=== PATIENT | female | born 1960 | race Caucasian/White ===

== ENCOUNTER 2024-07-23 19:22 | Emergency (ER) | payer MEDICARE, SELFPAY ==
--- NOTE | 2024-07-23 19:23 | ED_ITS ---
HPI - Skin/Abscess/Foreign Bdy General Chief complaint: Skin/Abscess/Foreign Body Stated complaint: TICK BITE Time Seen by Provider: 07/23/24 19:22 Source: patient Mode of arrival: ambulatory Limitations: no limitations History of Present Illness HPI narrative: Patient is a 63-year-old female that presents with tick bite. Patient noticed check 3 days ago and removed tick was unsure if she got the head. Patient had brother in law all look at it and also is unsure.Patient denies any drainage, pain, swelling, warmth or redness surrounding area. Related Data Allergies Allergy/AdvReac Type Severity Reaction Status Date / Time No Known Allergies Allergy Verified 07/23/24 19:29 Review of Systems 2 Review of Systems: All systems reviewed & are unremarkable except as noted in HPI and below Constitutional: Constitutional: Denies body ache(s), Denies chills, Denies fatigue, Denies fever(s), Denies headache(s), Denies malaise and Denies weakness Eyes: Eyes: Denies blurry vision, Denies irritation and Denies loss of vision ENT: Denies otalgia, Denies headache(s), Denies nasal discharge, Denies sinus pain and Denies sore throat Cardiovascular: Cardiovascular: Denies chest pain, Denies irregular heart rhythm and Denies dyspnea Respiratory: Respiratory: Denies dyspnea Gastrointestinal: Gastrointestinal: Denies abdominal pain, Denies melena, Denies hematochezia, Denies diarrhea, Denies nausea and Denies vomiting Musculoskeletal: Musculoskeletal: Denies back pain, Denies myalgias and Denies arthralgias Integumentary/Breasts: Skin/Breast: Denies pruritus, Denies rash and Reports sores Neurologic: Denies headache(s), Denies loss of vision and Denies weakness Psychiatric: Psychiatric: Reports no additional psychiatric complaints Endocrine: Endocrine: Denies fatigue PMFSH Comments At time of signature, agree with nursing past medical, surgical, social and family history. There is no relevant family history pertinent to the presenting complaint. Exam 2 Const: General: cooperative, healthy appearing, comfortable, no acute distress and well nourished Nutritional Appearance: well nourished O rientation/consciousness: patient oriented x3 Limitations: no limitations HENMT: Head: normal to inspection, normocephalic and atraumatic Ears: h earing grossly normal bilaterally and external ears normal Face/Nose/Sinus: N ormal external nose present, normal facial exam and face symmetric Face and sinus: normal facial exam and face symmetric Mouth: Yes lip normal Eyes: General: appearance normal, both eyes and all related structures A lignment and Position: alignment normal and position normal Periorbital: p eriorbital findings normal Eyelids: eyelids normal Pupils: Equal, round and reactive pupils present EOM: EOMs intact bilaterally Neck: Neck: normal visual inspection, full ROM and supple Chest: Chest palpation & inspection: normal inspection of the chest Resp: Effort & Inspection: normal respiratory effort and able to speak in complete sentences Auscultation: clear to auscultation bilaterally Cardio: Rate: regular rate Rhythm: regular rhythm Heart sounds: S1 normal heart sound present and S2 normal heart sound present GI: Inspection: normal to inspection Skin: General skin exam: normal color Full body images: 1. tick bite. 1 cm area of erythema. No bull's eye. No fluctuation or induration Neuro: General: patient oriented x3 and moves all extremities Cranial nerves: Yes Equal, round and reactive pupils present Speech: normal speech Gait exam (Neuro): Normal gait present Extrem: General: normal to inspection, full ROM and no edema Psych: Appearance: grossly normal and well kempt Mental Status: mental status grossly normal Speech and movement: Normal speech and movement present Affect: normal affect Attitude: cooperative Thought process: Normal thought process present Course Course Emergency Course: Patient is aware of diagnosis, understands and agrees to treatment plan. Anticipatory guidance given. Patient agrees to follow-up as directed and is aware of reasons to seek care at the emergency department. Portions of this record may have been created with voice recognition software Level of Care: Express Care Visit Vital Signs Vital signs: Vital Signs Temperature 37.1 C 07/23/24 19:32 Pulse Rate 96 07/23/24 19:32 Respiratory Rate 16 07/23/24 19:32 Blood Pressure 167/89 H 07/23/24 19:32 Pulse Oximetry 98 07/23/24 19:32 Temperature 37.1 C 07/23/24 19:32 Pulse Rate 96 07/23/24 19:32 Respiratory Rate 16 07/23/24 19:32 Blood Pressure 167/89 H 07/23/24 19:32 Pulse Oximetry 98 07/23/24 19:32 Reviewed MDM - Skin/Abscess/Foreign Bdy MDM Narrative Medical decision making narrative: Pt well hydrated appearing, in no respiratory distress, hemodynamically stable. Recommend supportive care. The patient is stable at time of discharge the clinical impression was discussed and the patient was given the opportunity to ask questions, which were addressed as completely as possible given the information available at present. Anticipatory guidance and return to care precautions were discussed and the importance of primary care follow-up was stressed and encouraged. The patient voiced understanding of the plan, indications to return, and the need for follow-up. Exam findings show no acute concerns or changes Patient is appropriate for outpatient treatment and follow-up. Differential Diagnosis Differential diagnosis: Likely cellulitis, insect bites and contact dermatitis Discharge Plan Discharge Clinical Impression: Tick bite of back Qualifiers: Encounter type: initial encounter Qualified Code(s): S30.860A - Insect bite (nonvenomous) of lower back and pelvis, initial encounter Patient Disposition: Home Condition: Stable Instructions: Tick Bite (ED) Additional Instructions: You have been prescribed Doxycycline today.It may make your skin more sensitive to sunlight than normal. Make sure you wear sunscreen at all times when outside while on the medication. Ticks should be removed promptly with tweezers (fine-tipped forceps) or using Q- tip and cervical motion. Prevention is alejo. If you are in the wooded area, tall grass, or brush: -Wear long pants and long sleeves. -Wear socks over the outside of pant legs. -Tuck shirts into pants. -Wear light-colored clothes so that ticks can easily be spotted. -[place] clothes and exposed skin with insect repellant. -Frequently check clothes and skin for ticks Avoid scratching the affected area, clean with soap and water only. Watch for sign of skin infection include but not limited to redness, swollen, severe pain or fever to seek evaluation. Please schedule a followup visit with your personal physician for further evaluation and treatment or If your symptoms persist, change or worsen significantly before you can contact your personal physician then please, without delay, go to the emergency department for further evaluation Kilo blood pressure was elevated above 120/80 today at Urgent Care. This puts you above the threshold for follow up visit with a primary care provider. High blood pressure does not usually cause any symptoms, however it may lead to kidney failure, stroke, heart disease just to name a few if untreated . Many people are anxious when seeing a provider or nurse. As a result, you are not diagnosed with hypertension at this time unless your blood pressure is persistently high at two office visits at least one week apart. Some things that can help lower blood pressure are lifestyle modifications, such as light exercise, decreased salt in diet, and weight loss. It is important to follow up with a PCP about this within 1 week. Patient Language: Burmese Prescriptions: New doxycycline monohydrate 100 mg tablet 100 mg PO BID 7 Days Qty: 14 0RF mupirocin 2 % ointment 1 applic topical BID Qty: 15 0RF Follow-up/Referrals: Shadi,MD Fabián [Primary Care Provider] - 3 Days Time of Disposition: 19:43
[2024-07-23 19:32] VITALS: BP 167/89; PULSE 96; RESP 16; TEMP 37.1; O2SAT 98
== END 2024-07-23 19:48 | disposition home or self-care (01) ==
PROVIDERS: Emergency Provider Nurse Practitioner Family; PCP Family Medicine
DX: S30.860A Insect bite (nonvenomous) of lower back and pelvis, initial encounter (principal); W57.XXXA Bitten or stung by nonvenomous insect and other nonvenomous arthropods, initial encounter
CPT/HCPCS: 99203; G0463

== ENCOUNTER 2024-10-10 08:17 | Emergency (ER) | payer MEDICARE, SELFPAY ==
[2024-10-10 08:30] VITALS: BP 154/84; PULSE 72; RESP 16; TEMP 36.7; O2SAT 100
--- NOTE | 2024-10-10 08:55 | ED_ITS ---
HPI - General Adult General Chief complaint: Skin/Abscess/Foreign Body Stated complaint: RASH Source: patient Mode of arrival: ambulatory Limitations: no limitations History of Present Illness HPI narrative: Patient presents for evaluation of a pruritic rash to her trunk and extremities x4. Symptom onset 5 days ago. She was exposed to poison mima earlier that day. She did have an allergic response to poison mima in childhood. No new lotions, soaps, detergents, topical products. She is not taking any medications to assist with her symptoms. Related Data Allergies Allergy/AdvReac Type Severity Reaction Status Date / Time No Known Allergies Allergy Verified 10/10/24 08:24 Review of Systems Review of Systems: CONSTITUTIONAL: Denies fever, chills, or sweats. EYES: Denies visual changes, redness, or discharge. ENT: Denies rhinorrhea, congestion, sore throat, or otalgia. CARDIOVASCULAR: Denies chest pain, palpitations, or edema. RESPIRATORY: Denies cough or dyspnea. GASTROINTESTINAL: Denies abdominal pain, nausea, vomiting, or diarrhea. GENITOURINARY: Denies dysuria or hematuria. SKIN: Reports pruritic rash to the trunk and extremities x4 MUSCULOSKELETAL: Denies back pain, joint pain, or myalgia. NEUROLOGIC: Denies headache, numbness, dizziness, or weakness. PSYCHIATRIC: Denies anxiety or depression. [facility] Past Medical History Medical History No pertinent past medical history Surgical History Surgical History No pertinent past surgical history Family History Family History Mother Family history non-contributory Social History Social History Smoking status: Never smoker Substance use: never Living arrangements: with family Gender identity (if verbalized by the patient): Female Sexual Orientation (if Verbalized by the Patient): Straight or Heterosexual Spiritual care concerns: No Exam Narrative: GENERAL: Well-appearing, well-nourished, and in no acute distress. HEAD: Normocephalic, atraumatic. EYES: PERRLA and EOMI. ENT: Nares clear, no rhinorrhea or epistaxis. Mucous membranes moist. Oropharynx without tonsillar hypertrophy exudate or other lesions. Bilateral TMs pearly saha nonbulging NECK: Supple. No adenopathy or masses. No carotid bruits or JVD CHEST: Clear to auscultation. No respiratory distress. No wheezes rales or rhonchi HEART: Regular rate and rhythm. No murmur heard. Normal peripheral pulses. ABDOMEN: Soft, nontender, nondistended, normal active bowel sounds. EXTREMITIES: Normal range of motion. No edema. SKIN: there are multiple erythematous vesicles in a patchy and linear distributions to the trunk and extremities x4. NEURO: No focal deficits. Alert and oriented x3. PSYCH: Normal mood and affect. Course Course Emergency Course: This is a 63-year-old female who presented for evaluation of a pruritic rash to the trunk and extremities x4. Exam is consistent with poison mima dermatitis. Recommend calamine lotion, Benadryl, steroids. Patient is not certain that she would like to move forward with steroids but agree to receive prescription for it. She was advised on intervention she can implement at home to minimize her symptoms. I did advise without steroids her symptoms would likely be quite persistent. I recommended she follow up with primary care go to the ER for worsening symptoms. Patient in agreement with plan of care Level of Care: Express Care Visit Vital Signs Vital signs: Vital Signs Temperature 36.7 C 10/10/24 08:30 Pulse Rate 72 10/10/24 08:30 Respiratory Rate 16 10/10/24 08:30 Blood Pressure 154/84 H 10/10/24 08:30 Pulse Oximetry 100 10/10/24 08:30 Temperature 36.7 C 10/10/24 08:30 Pulse Rate 72 10/10/24 08:30 Respiratory Rate 16 10/10/24 08:30 Blood Pressure 154/84 H 10/10/24 08:30 Pulse Oximetry 100 10/10/24 08:30 Medical Decision Making Vital Signs Vital Signs: Vital Signs Temperature 36.7 C 10/10/24 08:30 Pulse Rate 72 10/10/24 08:30 Respiratory Rate 16 10/10/24 08:30 Blood Pressure 154/84 H 10/10/24 08:30 Pulse Oximetry 100 10/10/24 08:30 Temperature 36.7 C 10/10/24 08:30 Pulse Rate 72 10/10/24 08:30 Respiratory Rate 16 10/10/24 08:30 Blood Pressure 154/84 H 10/10/24 08:30 Pulse Oximetry 100 10/10/24 08:30 Discharge Plan Discharge Clinical Impression: Poison mima dermatitis Patient Disposition: Home Condition: Stable Instructions: Antibiotic Form, Poison Mima (ED) Patient Language: Nauruan Prescriptions: New prednisone 20 mg tablet See Rx Instructions .ROUTE .COMPLEX Qty: 18 0RF Rx Instructions: take 2 tabs po daily x 5 days, then 1 tab po daily x 5 days, then 1/2 tab po daily x 6 days Follow-up/Referrals: Shadi,MD Fabián [Primary Care Provider, Unknown] Time of Disposition: 08:54
== END 2024-10-10 08:55 | disposition home or self-care (01) ==
PROVIDERS: Emergency Provider Nurse Practitioner; PCP Family Medicine
DX: L23.7 Allergic contact dermatitis due to plants, except food (principal)
CPT/HCPCS: 99213; G0463

== ENCOUNTER 2024-12-03 21:19 | Emergency (ER) | payer MEDICARE, SELFPAY ==
--- NOTE | ~2024-12-03 | CT_ITS ---
CT brain wo con HISTORY:trauma COMPARISON: None. TECHNIQUE: Axial images were obtained of the head without intravenous contrast. FINDINGS: No acute intracranial hemorrhage, mass effect or midline shift. No extra-axial fluid collections. The calvarium is intact. Visualized paranasal sinuses and mastoid air cells are clear. IMPRESSION: No acute intracranial hemorrhage or extra axial fluid collections. All CT scans at this facility are performed using low dose modulation techniques as appropriate to perform exam including the following: automated exposure control; use of iterative reconstruction technique; adjustment of the mA and/or kV according to patient size (this includes techniques or standardized protocols for targeted exams where dose is matched to indication/reason for exam). Reviewed, dictated and finalized at location S. IMPRESSION: No acute intracranial hemorrhage or extra axial fluid collections. All CT scans at this facility are performed using low dose modulation techniqu es as appropriate to perform exam including the following: automated exposure c ontrol; use of iterative reconstruction technique; adjustment of the mA and/or kV according to patient size (this includes techniques or standardized protocol s for targeted exams where dose is matched to indication/reason for exam).
--- NOTE | ~2024-12-03 | CT_ITS ---
CT chst ab pel thor lum w HISTORY: trauma . COMPARISON: None. TECHNIQUE: Axial images of the chest, abdomen and pelvis were obtained without and with infusion of 100 Isovue 300. FINDINGS: CT CHEST: The examination demonstrates small right pneumothorax.. Small right pleural effusion. No pathologically enlarged hilar or mediastinal lymphadenopathy is seen. Cardiac size and mediastinal configuration are normal in appearance. The pulmonary artery and thoracic aorta are normal in caliber and patency. There is a nondisplaced fracture of the posterior right fourth through eighth ribs. The visualized organs of the upper abdomen are unremarkable. IMPRESSION: Small right pneumothorax and pleural effusion with multiple right rib fractures. CT abdomen and pelvis with contrast: The liver parenchyma is unremarkable. 12 mm peripheral nodular enhancing right hepatic lobe lesion likely a hemangioma. The gallbladder is unremarkable. The pancreas and spleen are normal in appearance. The adrenal glands are symmetric in size. The kidneys demonstrate symmetric uptake and excretion of contrast. No cystic mass is evident. There is no solid mass. There is no hydronephrosis. Evaluation of the stomach and bowel loops are limited due to lack of oral contrast. The bladder and rectum are normal. No free intraperitoneal fluid or air is evident. There is no significant retroperitoneal lymphadenopathy. The aorta, visceral vessels and renal arteries demonstrate normal caliber and patency. The lower thoracic and lumbar vertebrae are in normal alignment. IMPRESSION: No acute abnormality is noted in the abdomen and pelvis. CT LUMBAR SPINE WITHOUT CONTRAST INDICATION: Back pain COMPARISON: None available. TECHNIQUE: Axial 2.5 mm images of the lumbar spine were obtained without contrast. Additional coronal and sagittal reformatted images were rendered. FINDINGS: The axial images demonstrate no acute fracture or paravertebral soft tissue swelling. There is no high-grade central or foraminal stenosis. No significant degenerative disc changes are noted. MULTIPLANAR RECONSTRUCTIONS: Additional sagittal and coronal reformatted images were obtained. The lumbar vertebrae are in alignment. There is no compression fracture, subluxation, or paravertebral soft tissue swelling. The disc spaces are preserved. IMPRESSION: No acute fracture or subluxation. All CT scans at this facility are performed using low dose modulation techniques as appropriate to perform exam including the following: automated exposure control; use of iterative reconstruction technique; adjustment of the mA and/or kV according to patient size (this includes techniques or standardized protocols for targeted exams where dose is matched to indication/reason for exam). All CT scans at this facility are performed using low dose modulation techniques as appropriate to perform exam including the following: automated exposure control; use of iterative reconstruction technique; adjustment of the mA and/or kV according to patient size (this includes techniques or standardized protocols for targeted exams where dose is matched to indication/reason for exam) Reviewed, dictated and finalized at location S. IMPRESSION: Small right pneumothorax and pleural effusion with multiple right rib fractures . CT abdomen and pelvis with contrast: The liver parenchyma is unremarkable. 12 mm peripheral nodular enhancing right hepatic lobe lesion likely a hemangioma. The gallbladder is unremarkable. The p ancreas and spleen are normal in appearance. The adrenal glands are symmetric i n size. The kidneys demonstrate symmetric uptake and excretion of contrast. No cystic m ass is evident. There is no solid mass. There is no hydronephrosis. Evaluation of the stomach and bowel loops are limited due to lack of oral contr ast. The bladder and rectum are normal. No free intraperitoneal fluid or air is evid ent. There is no significant retroperitoneal lymphadenopathy. The aorta, visceral vessels and renal arteries demonstrate normal caliber and p atency. The lower thoracic and lumbar vertebrae are in normal alignment. IMPRESSION: No acute abnormality is noted in the abdomen and pelvis. CT LUMBAR SPINE WITHOUT CONTRAST INDICATION: Back pain COMPARISON: None available. TECHNIQUE: Axial 2.5 mm images of the lumbar spine were obtained without contra st. Additional coronal and sagittal reformatted images were rendered. FINDINGS: The axial images demonstrate no acute fracture or paravertebral soft tissue swelling. There is no high-grade central or foraminal stenosis. No signi ficant degenerative disc changes are noted. MULTIPLANAR RECONSTRUCTIONS: Additional sagittal and coronal reformatted images were obtained. The lumbar vertebrae are in alignment. There is no compression fracture, subluxation, or paravertebral soft tissue swelling. The disc spaces are preserved. IMPRESSION: No acute fracture or subluxation. All CT scans at this facility are performed using low dose modulation techniqu es as appropriate to perform exam including the following: automated exposure c ontrol; use of iterative reconstruction technique; adjustment of the mA and/or kV according to patient size (this includes techniques or standardized protocol s for targeted exams where dose is matched to indication/reason for exam). All CT scans at this facility are performed using low dose modulation techniqu es as appropriate to perform exam including the following: automated exposure c ontrol; use of iterative reconstruction technique; adjustment of the mA and/or kV according to patient size (this includes techniques or standardized protocol s for targeted exams where dose is matched to indication/reason for exam)
--- NOTE | ~2024-12-03 | XR_ITS ---
XR chest 1V INDICATION:trauma . REFERENCE: None FINDINGS: A single AP of the chest demonstrates normal heart size. The lungs are clear. There is no evidence of pneumothorax or pleural effusion. IMPRESSION: No acute pulmonary findings. Reviewed, dictated and finalized at location S.
--- NOTE | ~2024-12-03 | CT_ITS ---
CT cervical spine wo con HISTORY: trauma COMPARISON: None TECHNIQUE: Axial images of the cervical spine were obtained. Multiplanar reconstruction in the coronal, sagittal and axial reformats to evaluate for cervical fracture. FINDINGS: The images demonstrate no acute fracture or paravertebral soft tissue swelling. There is no high-grade central or foraminal stenosis. No significant degenerative changes are noted. There is a 7.7 x 5 x 8.5 mm sclerotic lesion within the left mandible. The visualized aspect of the upper lungs are clear. IMPRESSION: No acute fracture or subluxation. There is a 8.5 mm sclerotic lesion in the left mandible. Follow-up bone scan can be done to exclude malignancy. All CT scans at this facility are performed using low dose modulation techniques as appropriate to perform exam including the following: automated exposure control; adjustment of the mA and/or kV according to patient size (this includes techniques or standardized protocols for targeted exams where does is matched to indication/reason for exam; i.e. extremities or head); use of iterative reconstruction technique). Reviewed, dictated and finalized at location S. IMPRESSION: No acute fracture or subluxation. There is a 8.5 mm sclerotic lesion in the left mandible. Follow-up bone scan ca n be done to exclude malignancy. All CT scans at this facility are performed using low dose modulation techniqu es as appropriate to perform exam including the following: automated exposure c ontrol; adjustment of the mA and/or kV according to patient size (this includes techniques or standardized protocols for targeted exams where does is matched to indication/reason for exam; i.e. extremities or head); use of iterative krishna nstruction technique).
--- NOTE | ~2024-12-03 | XR_ITS ---
XR shoulder RT min 2V HISTORY: trauma . COMPARISON: None. FINDINGS: External and internal rotated views and Y view of the right shoulder demonstrate acute displaced fracture of the midshaft of the clavicle. Acromioclavicular joint and glenohumeral joint are unremarkable. IMPRESSION: Acute displaced fracture of the midshaft of the clavicle. Reviewed, dictated and finalized at location S.
--- NOTE | ~2024-12-03 | XR_ITS ---
XR clavicle RT INDICATION: pain COMPARISON: None FINDINGS: Two views of the right clavicle demonstrate acute displaced fracture of the midshaft of the clavicle. IMPRESSION: Acute displaced fracture of the midshaft of the clavicle. Reviewed, dictated and finalized at location S.
--- OUTSIDE RECORDS SUMMARY | 2024-12-03 21:21 | XMS_ITS | Clinical Summary ---
Author Organization [facility] Address [address] [place] [id number] Care Team Providers Care Classification Counselor Name Role Phone Fabián Hsu MD Primary Care Provider [phone] Allergies No known active allergies Surgical History Surgery Date Site/Laterality Comments BREAST BIOPSY 02/17/2010 - 02/16/2011 Left Benign Family History Medical History Relation Name Comments Breast cancer Father's Sister Relation Name Status Comments Father's Sister Social History Tobacco Use Types Packs/Day Years Used Date Smoking Tobacco: Never Assessed Comments No Sex and Gender Information Value Date Recorded Sex Assigned at Not on file Legal Sex Female 8:13 PM [employer] Gender Identity Not on file Sexual Orientation Not on file Obstetrics History Para Term AB IAB SAB Ectopic Multiple Livin g Live Births 2 2 2 Date Outcome GA Total Labor Labor/2nd/3rd Weight Sex Type Anes PTL Xiomara A1 A5 Name Clin Term Term Plan of Treatment Health Maintenance Due Date Last Done Comments Colon Cancer Screening-Colonoscopy 1958 Depression Screening 1958 Fall Risk Assessment 1958 Hepatitis C Screening 1958 DTaP/Tdap/Td Vaccine (1 - Tdap) 1969 Hepatitis B Screening 1976 Pneumococcal vaccine 65+ (1 of 1 - PCV) 2008 Zoster Vaccine (1 of 2) 2008 Well Visit 65+ 10/15/2023 Covid-19 Vaccine (3 - 2024-2 6 season) 2024 06/14/2020, 05/20/2020 Influenza Vaccine (#1) 2024 Breast Cancer Screening-Mammogram 05/18/2025 05/18/2024, 09/16/2022, 01/09/2021, Additional history exists Osteoporosis Screening-Bone Density Scan 05/18/2026 05/18/2024, 09/08/2013 Procedures Procedure Name Priority Date/Time Associated Diagnosis Comments SCREENING MAMMOGRAM BILATERAL W MARCELLE Schedule Routine, Read Routine (OP Routine) 05/18/2024 10:49 AM CDT Screening mammogram, encounter for DEXA AXIAL SKELETON BONE DENSITY 1 OR MORE SITES Schedule Routine, Read Routine (OP Routine) 05/18/2024 10:35 AM CDT Menopause from Last 3 Months or Most Recently Relevant to Health Maintenance Results * Screening Mammogram Bilateral W Marcelle (05/18/2024 10:49 AM CDT) Anatomical Region Laterality Modality Breast Bilateral Mammography Impressions 05/18/2024 11:24 AM CDT BI-RADS ATLAS category (overall): 1 - Negative There is no mammographic evidence of malignancy. A 1 year screening mammogram is recommended. The patient has been or will be contacted. We recommend annual screening mammography for women at average risk of breast cancer beginning at age 40, based on guidelines of the [place] (ACR Practice Parameter for the Performance of Screening and Diagnostic Mammography) and [place]. For women with and elevated risk of breast cancer, please refer to the ACR Practice Parameter for specific screening recommendations. The patient will be entered into a reminder system with a target due date of 1 year for her next screening exam. Narrative 05/18/2024 11:24 AM CDT Screening Mammogram Bilateral W Marcelle: 05/18/24 The study was acquired using full field digital technology and interpreted from soft copy. 2D digital mammographic views, as well as 3D digital tomosynthesis were performed in the CC and MLO projections. This study was resulted using Computer-Aided Detection (CAD). CLINICAL: Screening mammogram, encounter for. No relevant medical history has been documented for this patient. History of breast cancer in Father's Sister. COMPARISONS: 09/16/2022 Screening Mammogram Bilateral W Marcelle 01/09/2021 Screening Mammogram Bilateral W Marcelle 10/28/2018 Screening Mammogram Bilateral W Marcelle 09/30/2016 Screening Mammogram Bilateral W Marcelle BREAST TISSUE: The breasts are heterogeneously dense, which may obscure small masses. FINDINGS: There is a biopsy marker clip in the left breast. No suspicious masses, suspicious calcifications, or other suspicious findings are seen within either breast. There has been no suspicious change. 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 CLINICAL INFORMATION: Current height: 67 inches Maximum height: 67 inches Weight: 132 pounds Risk factors: Postmenopausal COMPARISON: 09/08/2013 Dissimilar scan types or analysis methods precludes assessment for calculating a significant change. FINDINGS: AP LUMBAR SPINE L1-L4: Total BMD is 0.956 g/cm2 T-score is -0.8 LEFT HIP: Total BMD is 0.990 g/cm2 T-score is 0.4 Femoral neck BMD is 0.783 g/cm2 T-score is -0.6 FRAX: FRAX not reported due to T-scores of hip, femoral neck and/or spine being at or above -1.0 (Normal). IMPRESSION: Normal bone mass. REFERENCE: Bone mineral density: T-Score: Normal (T-score above or = -1.0) Low bone mass (T-score between -1.0 and -2.5) replaces the previously used term osteopenia Osteoporosis (T-score = or below -2.5) Z-Score: Within the expected range for age (Z-score above -2.0) Below the expected range for age (Z-score is -2.0 or below) Please see below follow up recommendations. Medical evaluation for secondary causes of low bone mineral density may be appropriate. FRAX is a World Health Organization validated fracture risk assessment tool that calculates a person's 10 year probability of a major osteoporosis related fracture and hip fracture. According to the National Osteoporosis Foundation guidelines, postmenopausal women and men age 50 or older with low bone mass and a 10 year probability of a major osteoporosis related fracture = or greater than 20% or a 10 year probability of a hip fracture = or greater than 3% should be considered for pharmacological treatment for the prevention of osteoporosis. For further information, including treatment recommendations, please refer to the 2019 ISCD Official Positions (http://www.iscd.org) and the NOF's Clinician's Guide to Prevention and Treatment of Osteoporosis (http://www.nof.org/professionals/clinical-guidelines) THIS IS AN ELECTRONICALLY VERIFIED FINAL REPORT 05/19/2024 6:40 AM - Electronically signed by Cristiano Grace M.D. 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 CLINICAL INFORMATION: Current height: 67 inches Maximum height: 67 inches Weight: 132 pounds Risk factors: Postmenopausal COMPARISON: 09/08/2013 Dissimilar scan types or analysis methods precludes assessment for calculating a significant change. FINDINGS: AP LUMBAR SPINE L1-L4: Total BMD is 0.956 g/cm2 T-score is -0.8 LEFT HIP: Total BMD is 0.990 g/cm2 T-score is 0.4 Femoral neck BMD is 0.783 g/cm2 T-score is -0.6 FRAX: FRAX not reported due to T-scores of hip, femoral neck and/or spine beingat or above -1.0 (Normal). IMPRESSION: Normal bone mass. REFERENCE: Bone mineral density: T-Score: Normal (T-score above or = -1.0) Low bone mass (T-score between -1.0 and -2.5) replaces thepreviously used term osteopenia Osteoporosis (T-score = or below -2.5) Z-Score: Within the expected range for age (Z-score above -2.0) Below the expected range for age (Z-score is -2.0 or below) Please see below follow up recommendations. Medical evaluation forsecondary causes of low bone mineral density may be appropriate. FRAX is a World Health Organization validated fracture risk assessmenttool that calculates a person's 10 year probability of a major osteoporosisrelated fracture and hip fracture. According to the National OsteoporosisFoundation guidelines, postmenopausal women and men age 50 or older with low bonemass and a 10 year probability of a major osteoporosis related fracture = or greater than 20% or a 10 year probability of a hip fracture = or greaterthan 3% should be considered for pharmacological treatment for the preventionof osteoporosis. For further information, including treatment recommendations, please referto the 2019 ISCD Official Positions (http://www.iscd.org) and the NOF's Clinician's Guide to Prevention and Treatment of Osteoporosis (http://www.nof.org/professionals/clinical-guidelines) THIS IS AN ELECTRONICALLY VERIFIED FINAL REPORT 05/19/2024 6:40 AM - Electronically signed by Cristiano Grace M.D. MF: [email or web address] Report ID: [id number] Reading Location: [place] [address] [place] Dueñas NP IMG DXA PROCEDURES Fi nal Result from Last 3 Months or Most Recently Relevant to Health Maintenance Insurance [facility] MEDICARE [place] [address] [employer] PPO Care Teams Classification Counselor Relationship Specialty Start Date End Date Fabián Hsu MD [address] [place] [address] PCP - General 10/26/18
--- OUTSIDE RECORDS SUMMARY | 2024-12-03 21:21 | XMS_ITS | Data Portability ---
Author Organization [employer] , [facility] Address [address] [place] [address] Assessment No assessment recorded. Plan of Treatment Reminders Order Date Submit Date Provider Last Modified By Organization Details Last Modified Time Details Appointments None recorded. Lab HPV E6+E7 mRNA, qualitative PCR, cervix 2024 025 [facility] Peter, [address] [place], [address], 5 15:42:01 pap, LB 2024 025 [facility], [address] [facility], [place], [address], 5 14:35:55 Referral None recorded. Procedures None recorded. Surgeries None recorded. Imaging bone density 2024 025 [facility] Scheduling, [facility] [place], [address], 5 07:45:13 MAMMO, screening, digital, bilateral [address] Central Scheduling, [address] [place], [address], 5 14:26:35 MAMMO, screening, digital, bilateral 2022 023 [facility] Scheduling, [address] [place], [address], 3 15:38:28 Medication Orders None recorded. Patient TargetsNo targets recorded. Patient Instructions Encounter Date Encounter Id Patient Instructions Last Modified By Organization Details Last Modified Time 04/05/2022 [id number] A healthy lifestyle: care instructions Not available 04/05/2022 12:38:14 substance use disorder: care instructions Not available 04/05/2022 12:38:14 calcium and vitamin D combination Not available 04/05/2022 12:38:14 depression (wome n only) Not available 04/05/2022 12:38:14 eating healthy foods: care instructions Not available 04/05/2022 12:38:14 exercise program : getting started Not available 04/05/2022 12:38:14 03/04/2024 [id number] A healthy lifestyle: care instructions Not available 03/04/2024 14:00:58 substance use disorder: care instructions Not available 03/04/2024 14:00:58 tobacco cessation Not availabl e 03/04/2024 14:00:58 calcium and vitamin D combination Not available 03/04/2024 14:00:59 depression (wome n only) Not available 03/04/2024 14:00:58 eating healthy foods: care instructions Not available 03/04/2024 14:00:59 exercise program : getting started Not available 03/04/2024 14:00:58 learning about colonoscopy Not available 03/04/2024 14:00:58 protect bone wit h calcium and vitamin D Not available 03/04/2024 14:00:59 osteoporosis education Not available 03/04/2024 14:00:58 Reason for Referral None Reported. Results Created Date Observation Date Name Description Value Unit Range Abnormal Flag Note LastModifiedBy Organization Detail LastModifiedTime 03/04/19 25 03/05/2024 HPV HIGH RISK HPV high risk Negati ve negati ve normal The HPV High Risk assay is inten ded for use as co-te sting with cytol ogy and not as a subst itute for regul ar cervi winnie cytol ogy scree roger. This assay is not inten ded for use as a scree roger devic e for women under age 30 with kira l cervi winnie cytol ogy. Not Available [facility] [address] [place], [address], 03/05/2024 15:42:01 03/04/19 25 03/09/2024 THINP REP TIS PAP clinical information: normal None given Not Available [address], [address], 03/09/2024 14:35:55 03/04/19 25 03/09/2024 THINP REP TIS PAP LMP: normal NONE GIVEN Not Available [address], [address], 03/09/2024 14:35:55 03/04/19 25 03/09/2024 THINP REP TIS PAP prev. Pap: normal NONE GIVEN Not Available [address], [address], 03/09/2024 14:35:55 03/04/19 25 03/09/2024 THINP REP TIS PAP prev. BX: normal NONE GIVEN Not Available [address], [address], 03/09/2024 14:35:55 03/04/19 25 03/09/2024 THINP REP TIS PAP source: normal Cervi x Not Available [address], [address], 03/09/2024 14:35:55 03/04/19 25 03/09/2024 THINP REP TIS PAP statement of adequacy: normal SATIS FACTO RY FOR EVALU ATION Not Available [address], [address], 03/09/2024 14:35:55 03/04/19 25 03/09/2024 THINP REP TIS PAP interpretati on/result: Cytol ogy Resul ts: Negat jordy for intra epith elial lesio n or carlos catherine . Atrop elenita malin rn; predo zander gibsony parab julita cells Not Available [address] [address] [place], [address], 03/09/2024 14:35:55 03/04/19 25 03/09/2024 THINP REP TIS PAP comment: normal This Pap test has been evalu ated with compu ter phan peres techn ology . Not Available [address] [address] [place], [address], 03/09/2024 14:35:55 03/04/19 25 03/09/2024 THINP REP TIS PAP cytotechnolo gist: normal BKA, CT( CP) CT scree roger locat ion: [address] [address] [place] [address] Not Available [address] [address] [place], [address], 03/09/2024 14:35:55 03/04/19 25 03/09/2024 THINP REP TIS PAP comment EXPLA NATOR Y NOTE: The Pap is a scree roger test for cervi winnie cance r. It is not a diagn ostic test and is subje ct to false negat jordy and false posit jordy resul ts. It is most relia ble when a satis facto ry sampl e, regul rose obtai janelle, is submi tted with relev ant clini winnie findi ngs and histo ry, and when the Pap resul t is evalu ated along with histo enrrique and curre nt clini winnie infor matio n. Not Available [address] [address] [place], [address], 03/09/2024 14:35:55 09/17/19 23 09/16/2022 MAMMO , scree roger, digit al, bilat eral No observ ation record ed. [facility] [place], [address], 09/17/2022 08:15:48 05/20/19 25 05/18/2024 bone densi ty No observ ation record ed. [id number] [place], [address], 05/19/2024 11:09:46 Result Notes None recorded. Problems Name Problem SNOMED Code Status Onset Date Resolution Date Notes Provider Name and Address Organization Details Recorded Time Mucous polyp of cervix 92999507 Completed 201310/08/2018 Cervical polyp; Location: None Progress: Stable Added By: Elizabeth Beard Add to Current Problems: NO ProblemSt atus: Current C ervical polyp; Progress: Stable Added By: Elizabeth Beard Add to Current Problems: NO ProblemSt atus: Resolve Not Available [facility] 2 20:54:28 Breast neoplasm screenin g NOS Completed 201611/16/2016 Screening mammogram - other; Location: None Severity: Moderate Progress: Stable Added By: Bia Tobin Add to Current Problems: YES ProblemSt atus: Resolve Not Available [facility] 1 04:37:15 Problem Notes None recorded. Procedures Surgical History Date Name Laterality Status Provider Name and Address Organization Details Recorded Time 03/04/19 25 Date of Last Pap Smear completed ROLANDO CONTRERAS [address] [place] [address], [phone], [facility] 03/10/2024 10:11:20 09/17/19 23 Most Recent Mammogram completed Yoselin [place] MD [address] [place] [address], [id number], [facility] 09/17/2022 08:15:36 09/14/19 22 Date of Last Colonoscopy completed Peggy You [place] - [facility] 04/05/2022 12:03:42 09/09/19 22 Colonoscopy completed Peggy You [facility] - [facility] 04/05/2022 11:55:19 04/30/19 22 completed Yoselin [place] MD [address] [place] [address], [id number] 04/05/2022 12:37:40 09/09/19 14 Most Recent Bone Density completed Peggy You [facility] 04/05/2022 11:55:12 04/28/19 13 Colonoscopy completed Peggy You [facility] 04/05/2022 11:55:19 Imaging Results None recorded. Procedure Notes None recorded. Medical Equipment None Reported. Allergies No known drug allergies Medications Name Sig Start Date Stop Date Status Note LastModified by Organization Details LastModified Time hydrocort isone 2.5 % topical cream APPLY TO AFFECTED AREA 3 TIMES A DAY 03/04 completed Not Available Not Available Not Available mupirocin 2 % topical ointment APPLY A SMALL AMOUNT TO AFFECTED AREA 3 TIMES A DAY 03/04 completed Not Available Not Available Not Available Vitamin D active Vitamin D Refill Denied: No Refill DateOccu rred: 10/09/19 Edited by: Amira Mcclellna ) on 10/09/19 Stopped by: Amira Mcclellan ) on Not Available Not Available Not Available Vitals Date Recorded Body weight Body mass index (BMI) Body height Systolic And Diastolic Provider Name and Address Organization Details Last Updated DateTime 03/04/2024 26319.47 g 20.6 kg/m2 170.18 cm 120/82 mm[Hg] Jamal Mullen [place] [email or web address] 03/04/2024 13:45:55 Date Recorded Body height Body mass index (BMI) Body weight Body temperature Systolic And Diastolic Provider Name and Address Organization Details Last Updated DateTime 04/05/2022 170.18 cm 20.7 kg/m2 10425.6 3 g 98.7 [degF] 140/84 mm[Hg] Peggy You [facility] 12:01:37 Social History Question Answer Notes LastModified by Organizat ion Details LastModified Time Tobacco Smoking Status Former Smoker Peggy You samina [facility] 04/05/2022 11:55:16 Are You Blind Or Do You Have Difficulty Seeing? No randell Information not available 04/05/2022 Are You Deaf Or Do You Have Serious Difficulty Hearing? No [email or web address] Information not available 04/05/2022 What Type Of Diet Are You Following? REGULAR Information not available 03/04/2024 When Did You Quit Smoking? 16+yearssinc elastcigaret te [email or web address] Information not available 04/05/2022 How Many Children Do You Have? 2 [email or web address] Information not available 04/05/2022 What Is Your Relationship Status? [email or web address] Information not available 04/05/2022 Are You Sexually Active? Yes [email or web address] Information not available 04/05/2022 Have You Used IV Drugs? No [email or web address] Information not available 04/05/2022 Sex: Unknown Functional Status Question Answer Note LastModified by Organizat ion Details LastModified Time Do you use any illicit or recreational drugs? No [email or web address] Information not available 04/05/2022 What is your level of alcohol consumption? None [email or web address] Information not available 04/05/2022 Are you currently employed? No [email or web address] Information not available 03/04/2024 Do you or have you ever used e-cigarettes or vape? Never used electronic cigarettes [email or web address] Information not available 04/05/2022 What is your exercise level? Moderate Information not available 03/04/2024 Mental Status None recorded. Family History Relationship Description Onset Age of this Age Resolved Age Notes LastModified by Organization Details LastModified Time Mother Myocardial infarction [email or web address] Not available 03/04 13:37:49 Medical History Condition Response Other Cancer N High Blood Pressure N Colon Cancer N Cytomegalovirus N Hyperthyroidism N Breast Cancer N Herpes (HSV) N Blood Transfusion N MRSA N Lung Cancer N Hypothyroidism N Depression N Incontinence N Panic Attacks N Neurological Disorder N Deep Vein Thrombosis N Anxiety Disorder N Autoimmune disease N Arthritis N Tuberculosis/Positive PPD N Shingles N Polycystic Ovarian Syndrome N Infertility N Cervical Cancer N Chlamydia N Hematuria N Stroke N Varicosities N Crohn's Disease N Seasonal allergies N Alzheimer's/Dementia N COPD/Emphysema N HPV/Genital Warts N Endometriosis N IBS (Irritable Bowel Syndrome) N History of Abnormal Pap N High Cholesterol N Liver Disease N Kidney Infection N Fibromyalgia N Ulcer N Kidney Disease N HIV N Gallbladder disease N Sickle Cell Disease/Trait N Von Willebrand disease N ADD/ADHD N Eating Disorder N Anemia N Diabetes Mellitus (non-insulin dependent ) N Ovarian Problems N Multiple Sclerosis N Gonorrhea N Frequent Urinary Tract infections N Osteopenia N Headaches/migraines N GERD (reflux) N Ovarian Cancer N Diabetes (insulin dependent) N Seizures/Epilepsy N Breast Problems N Fibroids N Heart Attack N Asthma N Lupus N Endometrial Cancer N Rubella N Blood Clotting Disorder N Bipolar Disorder N Diabetes Mellitus (during ) N Ulcerative Colitis N Hepatitis N Heart Disease N Pulmonary Embolism N RPR N Chicken Pox N Osteoporosis N Gynecological History Statement/Question Response Flow Light Date of last HPV 03/04/2024 Date of LMP 02/17/2007 Duration of Flow (days) 3 Most Recent Mammogram 09/16/2022 Current Control Method Menopause Age at Menarche 12 If Post Menopausal, Age at Menopause 47 Date of Last Colonoscopy 09/13/2021 Most Recent Bone Density 09/08/2013 Frequency of Cycle (Q days) 28 Date of Last Pap Smear 03/04/2024 04/29/2021 Obstetrics History GPAL:G 2 P 2 0 0 2 Type Value Full Term 2 Living 2 Total 2 Immunizations Vaccine Type Date Status Note Provider Nam e and Address Organization Details Recorded Time COVID-19, mRNA, LNP-S, bivalent, PF, 30 mcg/0.3 mL dose 05/20/2020 completed Peggy haas, [facility] 04/05/2022 12:08:22 COVID-19, mRNA, LNP-S, bivalent, PF, 30 mcg/0.3 mL dose 06/14/2020 completed Peggy haas, [facility] 04/05/2022 12:08:43 Past Encounters Encounter ID Performer Location Encounter Start Date Encounter Closed Date Diagnosis/Indication Diagnosis SNOMED-CT Code Diagnosis ICD10 Code Diagnosis IMO Codes Diagnosis Note [id number] Yoselin [place] MD [facility] h [address] [place] [address] 04/05/2022 11:50:27 04/05/2022 12:54:20 Gynecologic examination 38615976 Z01.419 Screening for malignant neoplasm of breast 001924769 Z12.39 Depression screening 171 634965 Z13.31 [id number] Yoselin [place] MD [facility] h [address] [place] [address] 03/04/2024 13:19:31 03/04/2024 14:26:34 Gynecologic examination 72303015 Z01.419 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 Medical, family and social history reviewed. The patient denies any changes. Adequate changes were made. 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 Education on Breast Self Awareness given.She is due for mammogramL ast mammogram: 09/16/2022 F amily History:Ne gative for Breast Cancer, Cervical Cancer, Colon Cancer, Endometria l Cancer and Ovarian Cancer. S ocial History:Aracely evans is currently sexually active. She denies complaints about sexual activity. Patient reports feeling safe at home from emotional, physical, and verbal abuse.She does/does not desire STD testing. E xercise: Occasional She wears her seat belt. She does not text and drive.The patient denies smoking and recreation al drugs. She denies drinking alcohol. P atient is regularly seen by PCP for preventati ve care: Yes The patient was initially evaluated by ROLANDO Contreras, who completed the history examinatio n, and preliminar y assessment . I, Yoselin [place] MD, entered the room to review and discuss the care plan with the patient. After reviewing the specific findings and documentat ion provided by [place], I confirmed the diagnosis and care plan, addressing any additional concerns or questions raised by the patient. The final plan of care was developed collaboravni espinoza and has been documented accordingl y. Wellness exam Q2 years Screening for malignant neoplasm of cervix 839632356 Z12.4 Screening for malignant neoplasm of breast 071765238 Z12.39 Screening colonoscopy 44 0916438 Z12.11 Menopause 703684564 Z78. 0 Depression screening 171 828735 Z13.31 PHQ9: 0. Pt educated on normal scoring, and discussed depression precaution s and when to notify HCP/go to ER. Health Concerns Section Related Observation LastModified by Organization Detai ls LastModified Time None Recorded Concern Status LastModified by Organization Details LastModified Time None Recorded Advance Directives Directive None Recorded Payers Insurance Date Sequence Insurance Name Policy Number Policy Barrios Covered Member ID Barriso Member ID Guarantor Name 03/23/2024 1 [facility] (MEDICARE REPLACEMENT/ADV ANTAGE - PPO) [id number] Christy Driscoll [id number] Christy Driscoll 03/23/2024 1 [place] Christy Driscoll [id number] Christy Driscoll 03/11/[address] [facility] [place] - DOS PRIOR TO 2024 (PPO) Hemant Bnejamin Yamila [id number] Regulo Elizabeth Yamila Notes Date Note Type Note Provider Name and Address Organization Details Recorded Time 3 text/html Annual GYNReported by PatientHistoryFor history, patient reportsno gynecologic complaints.Genitourinary symptomsFor menstrual cycle, patient reportsnormal menses. For urinary symptoms, patient reportsno hematuriaandno incontinence. For vulva, patient reportsno genital lesion. For vagina, patient reportsnormal vaginal discharge.Breast symptomsFor breast, patient reportsno breast pain,no breast lump, andno nipple discharge.Endocrine symptomsFor sexual complaints, patient reportsno sexual complaints,no pain during intercourse, andnormal libido. For menopausal symptoms, patient reportsno menopausal symptomsandnormal vaginal lubrication.Psychological symptomsFor psychological symptoms, patient reportsno depression,no anxiety, andno pmdd.Preventative measuresFor preventive measures, patient reportsencourage self breast examination. Yoselin [place] MD [address] [place], [address], [facility] [place] 04/05/2022 12:42:02 5 text/html Annual Field Return Repairer Post-MenopausalReported by PatientGenitourinary symptomsFor menopausal symptoms, patient reportsno menopausal symptomsandnormal vaginal lubrication. For vaginal bleeding, patient reportshistory of menopause having occurredandno history of post menopausal bleeding. For urinary symptoms, patient reportsno hematuria,no incontinence,no nocturia, andno urinary frequency. For vulva, patient reportsno genital lesionandno vulvar atrophy. For vagina, patient reportsnormal vaginal dischargeandno vaginal atrophy.Breast symptomsFor breast, patient reportsno breast lump,no nipple discharge, andno breast pain.Psychological symptomsFor sexual complaints, patient reportsno sexual complaints. For psychological symptoms, patient reportsno depressionandno anxiety.ROS as noted in the HPI Christy is a 63 yr old female. Pt is here for annual. Pt last pap was 12/19/20. Pt is post menopause. 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 Status 03/04/19 25 1 CLOSED Fetus Data First Name Last Name Admitted to NICU Weight (g) Sex Living Outcome Pediatric Complications Fetus ID Race Codes Race Delivery Type M Full Term [id number] Fabricio Calculation Initial Fabricio Date Initial Exam Date Initial Exam Provider Initial Ultrasound Date Last Menstrual Period Date Ultra Sound Weeks Gestation 0 Eighteen To Twenty Week Fabricio Update Ultra Sound Date Fundal Height At Umbil Quickening Date Ultra Sound Latest Weeks Gestation Final Fabricio Confirmed By Final Fabricio Confirmed Date Final Fabricio Date Ultra Sound Latest Days Gestation 0 0 Menstrual History Last Menstrual Date Menses Monthly On Bcp Conception Prior Menses Frequency Hcg Plus Date Menarche Onset Age Delivery Information Delivery Date Delivery Type Labor Anesthesia Weeks Gestation Incision Type Labor Labor Length Hrs Delivered By Post Complications Tubal Sterilization Discharge Date Comments 7 Discharge Information Feeding Method Contraceptive Method Maternal HG B and HCT Levels Ob Episode Information Episode Created Date Number of Fetuses Patient Bloodtype Patient rh Status Prepregnancy Weight lbs Domestic Partner Domestic Partner Phone Father Name 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 Status 03/04/19 25 1 CLOSED Fetus Data First Name Last Name Admitted to NICU Weight (g) Sex Living Outcome Pediatric Complications Fetus ID Race Codes Race Delivery Type M Full Term [id number] Fabricio Calculation Initial Fabricio Date Initial Exam Date Initial Exam Provider Initial Ultrasound Date Last Menstrual Period Date Ultra Sound Weeks Gestation 0 Eighteen To Twenty Week Fabricio Update Ultra Sound Date Fundal Height At Umbil Quickening Date Ultra Sound Latest Weeks Gestation Final Fabricio Confirmed By Final Fabricio Confirmed Date Final Fabricio Date Ultra Sound Latest Days Gestation 0 0 Menstrual History Last Menstrual Date Menses Monthly On Bcp Conception Prior Menses Frequency Hcg Plus Date Menarche Onset Age Delivery Information Delivery Date Delivery Type Labor Anesthesia Weeks Gestation Incision Type Labor Labor Length Hrs Delivered By Post Complications Tubal Sterilization Discharge Date Comments 9 Discharge Information Feeding Method Contraceptive Method Maternal HG B and HCT Levels
--- OUTSIDE RECORDS SUMMARY | 2024-12-03 21:21 | XMS_ITS | Clinical Summary ---
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 Gender Identity Not on file Sexual Orientation Not on file Plan of Treatment Upcoming Encounters Date Type Department Care Team (Late st Contact Info) Description 12/07/2024 10:30 AM CDT Office Visit [facility] - [place] [address] [facility] [address] [place] [address] [phone] Beverly Isaac MD [address] [facility] [address] [place] [address] [phone] Health Maintenance Due Date Last Done Comments Colorectal Cancer Screening Colonoscopy (10 Years) 1958 Hepatitis C 1976 DTaP, Tdap and Td Vaccines ( 1 - Tdap) 1977 Mammogram Screening 1998 Pneumococcal Vaccine: 50+ Ye ars (1 of 1 - PCV) 2008 Zoster Vaccines (1 of 2) 2008 Annual Medicare Wellness Visit 10/15/2023 Dexa Scan (General) 10/15/2023 COVID-19 Vaccine ( - 2023-2 5 season) 2024 Influenza Adult (#1) 2024 RSV Immunization or 60+ Years (1 - 1-dose 75+ series) 2033 Hepatitis A Vaccines Aged Out No long er eligible based on patient's age to complete this topic Meningococcal B Vaccine Aged Out No l onger eligible based on patient's age to complete this topic Meningococcal Vaccine Aged Out No kely angelique eligible based on patient's age to complete this topic RSV Immunizations Under 20 Months Aged Out No longer eligible based on patient's age to complete this topic Insurance MEDICARE
--- NOTE | 2024-12-03 21:28 | ED.FALL ---
HPI - Fall General Chief Complaint: Trauma Stated Complaint: fall Time Seen by Provider: 12/03/24 21:21 History of Present Illness HPI Narrative: 64-year-old otherwise healthy female presenting to the emergency department after falling down her staircase. Patient states that she was trying to go to bed internal the lights and then tried to go grab her phone from downstairs and tumbled and fell down the entire flight of stairs. She fell down head over heels but did not lose consciousness. She is complaining of significant pain in her back and right upper extremity near her shoulder. Denies any headache. No nausea, vomiting, shortness of breath, abdominal pain. Walked in with her who drove her to the hospital. She is ambulatory. No numbness or tingling in her extremities. Range of motion of the right upper extremity restricted secondary to pain and obvious deformity to her right clavicle area. Patient placed in the room 5, IV established, trauma workup underway. Related Data Allergies Allergy/AdvReac Type Severity Reaction Status Date / Time No Known Allergies Allergy Verified 10/10/24 08:24 Review of Systems Review of Systems: As reviewed above in HPI [facility] Past Medical History Medical History No pertinent past medical history Surgical History Surgical History No pertinent past surgical history Family History Family History Mother Family history non-contributory Social History Social History Smoking status: Never smoker Substance use: never Living arrangements: with family Gender identity (if verbalized by the patient): Female Sexual Orientation (if Verbalized by the Patient): Straight or Heterosexual Spiritual care concerns: No Exam Narrative: GENERAL: Acute distress with pain, clutching her right arm and shoulder in pain. HEAD: Atraumatic and normocephalic head neck EYES: PERRLA ENT: Nares clear, no rhinorrhea or epistaxis. Mucous membranes moist. NECK: Supple. CHEST: Clear to auscultation, no respiratory distress but mild tachypnea noted. No retractions. No decreased air entry noted. Right chest wall has an obvious deformity to the clavicular area with skin tenting. Crepitus with palpation of the clavicle on the right side with reduction of the skin tenting and suspected fracture with positioning of the shoulder forward. HEART: [Regular rate and rhythm]. No murmur heard. [Normal peripheral pulses.] ABDOMEN: [Soft, nondistended], [nontender], [No rigidity or guarding] EXTREMITIES: Flexion at the elbow intact in the right side. Normal range of motion of the other 3 extremities. [employer] strength 5/5 bilaterally. No midline cervical thoracic or lumbar spinal tenderness. Tenderness over the right scapular region posteriorly but no overlying skin changes there. Skin tenting to the right chest wall laterally in the clavicle noted above. SKIN: Warm, dry, no rash. NEURO: [No focal deficits]. Alert and oriented [x3.] PSYCH: [Normal mood and affect.] Course Vital Signs Vital signs: Vital Signs Temperature 36.9 C 12/03/24 21:45 Pulse Rate 103 H 12/03/24 21:45 Respiratory Rate 18 12/03/24 21:45 Blood Pressure 159/91 H 12/03/24 21:45 Pulse Oximetry 100 12/03/24 21:45 Temperature 36.9 C 12/03/24 21:45 Pulse Rate 103 H 12/03/24 21:45 Respiratory Rate 18 12/03/24 21:45 Blood Pressure 159/91 H 12/03/24 21:45 Pulse Oximetry 100 12/03/24 21:45 MDM - Fall MDM Narrative Medical decision making narrative: 64-year-old otherwise healthy female presenting to the emergency department after falling down her staircase. Patient states that she was trying to go to bed internal the lights and then tried to go grab her phone from downstairs and tumbled and fell down the entire flight of stairs. She fell down head over heels but did not lose consciousness. She is complaining of significant pain in her back and right upper extremity near her shoulder. Denies any headache. No nausea, vomiting, shortness of breath, abdominal pain. Walked in with her who drove her to the hospital. She is ambulatory. No numbness or tingling in her extremities. Range of motion of the right upper extremity restricted secondary to pain and obvious deformity to her right clavicle area. Patient placed in the room 5, IV established, trauma workup underway. Clear to auscultation, no respiratory distress but mild tachypnea noted. No retractions. No decreased air entry noted. Right chest wall has an obvious deformity to the clavicular area with skin tenting. Crepitus with palpation of the clavicle on the right side with reduction of the skin tenting and suspected fracture with positioning of the shoulder forward. No midline spinal tenderness. No neurological deficits. Placed on specialized language instructor IV established. Soft nontender nondistended abdomen. No chest pain. Given Dilaudid for analgesia, CTs of the chest abdomen pelvis, spine and head ordered. Laboratory studies obtained. X-rays of the chest obtained in room prior to CT. x-rays were unremarkable but her CT scan was reviewed and does show a right-sided hemopneumothorax albeit small with maximal diameter about 7 mm to 1 cm. Patient feeling better after Dilaudid but did require additional dose. Placed on 100% non-rebreather at this time. No other appreciable injuries on the CT scan during my interpretation. Awaiting formal radiology read but given the traumatic nature findings will require transfer to higher level of care and trauma center. Spoke to Dr. Louis from [facility] and patient was accepted as a direct ER to ER transfer as a trauma. ALS ambulance to [facility] was arranged. Patient remains hemodynamically stable without any decompensation. Transfer successfully. Medical Records Attestation: I reviewed the patient's medical records. Lab Data Attestation: I reviewed the patient's lab results. 12/03/24 21:45 12/03/24 21:45 Labs: Lab Results 12/03/24 Range/Units 21:45 WBC 9.7 (4.5-10.0) K/mm3 RBC 4.59 (4.2-5.4) M/mm3 Hgb 13.8 (12.0-15.0) g/dL Hct 40.9 (37.0-47.0) % MCV 89.1 (80-100) fl MCH 30.1 (26-34) pg MCHC 33.7 (32-36) g/dl RDW 11.9 (11.5-14.5) % Plt Count 359 (150-375) k/mm3 MPV 9.8 (7.4-10.4) fl Immature Gran % (Auto) 0.6 H (0-0.5) % Neut % (Auto) 32.8 L (45.5-73.1) % Lymph % (Auto) 51.2 H (18.3-44.2) % [place] % (Auto) 10.1 H (2.6-8.5) % Eos % (Auto) 4.6 H (0-4.4) % Baso % (Auto) 0.7 (0.2-1.2) % Lymph # (Auto) 4.97 H (0.9-3.2) K/mm3 [place] # (Auto) 1.0 H (0.1-0.6) K/mm3 Eos # (Auto) 0.5 H (0-0.3) K/mm3 Baso # (Auto) 0.1 (0.0-0.1) K/mm3 Abs Immat Gran (auto) 0.06 H (0.00-0.031) K/mm3 Absolute Neuts (auto) 3.2 (1.3-6.7) K/mm3 Absolute Nucleated RBC 0.000 (0.0-0.012) K/mm3 Nucleated RBC % 0.0 (0.0-0.2) % PT 12.9 (11.1-14.7) Seconds INR 1.0 APTT 26.9 (22.3-36.8) Seconds Sodium 134 L (137-145) mmol/L Potassium 3.5 (3.4-5.0) mmol/L Chloride 96 L (98-107) mmol/L Carbon Dioxide 26 (22-30) mmol/L Anion Gap 12 (4-12) mmol/L BUN 12 (7-17) mg/dL Creatinine 0.72 (0.7-1.0) mg/dL Estim Creat Clear Calc Not Reportable Estimated GFR > 60 (59 - ) Glucose 162 H (65-110) mg/dL Calcium 9.1 (8.4-10.2) mg/dL Total Bilirubin 0.4 (0.2-1.3) mg/dL AST 37 H (14-36) U/L ALT 23 (6-35) U/L Alkaline Phosphatase 62 (38-126) U/L Total Protein 8.4 H (6.3-8.2) g/dL Albumin 4.7 (3.5-5.1) g/dL Blood Type A Positive Antibody Screen Negative Imaging Data Attestation: I personally reviewed and interpreted this imaging study as follows: My impression: Impressions Head CT 12/03/24 22:18 IMPRESSION: No acute intracranial hemorrhage or extra axial fluid collections. All CT scans at this facility are performed using low dose modulation techniques as appropriate to perform exam including the following: automated exposure control; use of iterative reconstruction technique; adjustment of the mA and/or kV according to patient size (this includes techniques or standardized protocols for targeted exams where dose is matched to indication/reason for exam). Cervical Spine CT 12/03/24 22:23 IMPRESSION: No acute fracture or subluxation. There is a 8.5 mm sclerotic lesion in the left mandible. Follow-up bone scan can be done to exclude malignancy. All CT scans at this facility are performed using low dose modulation techniques as appropriate to perform exam including the following: automated exposure control; adjustment of the mA and/or kV according to patient size (this includes techniques or standardized protocols for targeted exams where does is matched to indication/reason for exam; i.e. extremities or head); use of iterative reconstruction technique). Chest/Abdomen/Pelvis/Spine CT 12/03/24 22:29 IMPRESSION: Small right pneumothorax and pleural effusion with multiple right rib fractures. CT abdomen and pelvis with contrast: The liver parenchyma is unremarkable. 12 mm peripheral nodular enhancing right hepatic lobe lesion likely a hemangioma. The gallbladder is unremarkable. The pancreas and spleen are normal in appearance. The adrenal glands are symmetric in size. The kidneys demonstrate symmetric uptake and excretion of contrast. No cystic mass is evident. There is no solid mass. There is no hydronephrosis. Evaluation of the stomach and bowel loops are limited due to lack of oral contrast. The bladder and rectum are normal. No free intraperitoneal fluid or air is evident. There is no significant retroperitoneal lymphadenopathy. The aorta, visceral vessels and renal arteries demonstrate normal caliber and patency. The lower thoracic and lumbar vertebrae are in normal alignment. IMPRESSION: No acute abnormality is noted in the abdomen and pelvis. CT LUMBAR SPINE WITHOUT CONTRAST INDICATION: Back pain COMPARISON: None available. TECHNIQUE: Axial 2.5 mm images of the lumbar spine were obtained without contrast. Additional coronal and sagittal reformatted images were rendered. FINDINGS: The axial images demonstrate no acute fracture or paravertebral soft tissue swelling. There is no high-grade central or foraminal stenosis. No significant degenerative disc changes are noted. MULTIPLANAR RECONSTRUCTIONS: Additional sagittal and coronal reformatted images were obtained. The lumbar vertebrae are in alignment. There is no compression fracture, subluxation, or paravertebral soft tissue swelling. The disc spaces are preserved. IMPRESSION: No acute fracture or subluxation. All CT scans at this facility are performed using low dose modulation techniques as appropriate to perform exam including the following: automated exposure control; use of iterative reconstruction technique; adjustment of the mA and/or kV according to patient size (this includes techniques or standardized protocols for targeted exams where dose is matched to indication/reason for exam). All CT scans at this facility are performed using low dose modulation techniques as appropriate to perform exam including the following: automated exposure control; use of iterative reconstruction technique; adjustment of the mA and/or kV according to patient size (this includes techniques or standardized protocols for targeted exams where dose is matched to indication/reason for exam) Chest X-Ray 12/03/24 22:43 IMPRESSION: No acute pulmonary findings. Shoulder X-Ray 12/03/24 22:43 IMPRESSION: Acute displaced fracture of the midshaft of the clavicle. Clavicle X-Ray 12/03/24 22:49 IMPRESSION: Acute displaced fracture of the midshaft of the clavicle. Critical Care Time Critical Care Time Critical Care Time: Yes Total Critical Care Time: 75 Discharge Plan Discharge Clinical Impression: Traumatic hemopneumothorax, Multiple fractures of ribs, Clavicle fracture, Fall down stairs Patient Disposition: Acute Care Hospital Condition: Guarded Prognosis Patient Language: Canadian Prescriptions: No Action prednisone 20 mg tablet See Rx Instructions .ROUTE .COMPLEX Qty: 18 0RF Rx Instructions: take 2 tabs po daily x 5 days, then 1 tab po daily x 5 days, then 1/2 tab po daily x 6 days Follow-up/Referrals: Shadi,MD Fabián [Non-Staff, Unknown]
[2024-12-03] MEDS: HYDROmorphone HCL INJ (*CRX) 1 MG/ML SYR 0.5 MG IV PUSH ×2 (21:43→23:41)
[2024-12-03 21:45] VITALS: BP 159/91; PULSE 103; RESP 18; TEMP 36.9; O2SAT 100
[2024-12-03 21:50] LABS: Hematocrit 40.9 % (37.0-47.0); Hemoglobin 13.8 g/dL (12.0-15.0); Immature Granulocyte Percent A 0.6 % (0-0.5); Lymphocytes Absolute Auto 4.97 K/mm3 (0.9-3.2); Mean Corpuscular HGB Conc 33.7 g/dl (32-36); Mean Corpuscular Hemoglobin 30.1 pg (26-34); Mean Corpuscular Volume 89.1 fl (80-100); Nucleated Red Blood Cells Absolute Auto 0.000 K/mm3 (0.0-0.012); Nucleated Red Blood Cells Perc 0.0 % (0.0-0.2); Platelet Count Result 359 k/mm3 (150-375); Red Blood Count 4.59 M/mm3 (4.2-5.4); White Blood Count 9.7 K/mm3 (4.5-10.0)
[2024-12-03 22:01] LABS: INR 1.0; Prothrombin Time 12.9 Seconds (11.1-14.7)
[2024-12-03 22:02] LABS: Partial Thromboplastin Time 26.9 Seconds (22.3-36.8)
[2024-12-03 22:03] LABS: Alanine Aminotransferase 23 U/L (6-35); Albumin Level 4.7 g/dL (3.5-5.1); Alkaline Phosphatase 62 U/L (38-126); Anion Gap 12 mmol/L (4-12); Aspartate Amino Transferase 37 U/L (14-36); Bilirubin,Total 0.4 mg/dL (0.2-1.3); Blood Urea Nitrogen 12 mg/dL (7-17); Calcium 9.1 mg/dL (8.4-10.2); Carbon Dioxide 26 mmol/L (22-30); Chloride 96 mmol/L (98-107); Estimated Glomerular Filt Rate > 60; Glucose 162 mg/dL (65-110); Potassium 3.5 mmol/L (3.4-5.0); Sodium 134 mmol/L (137-145); Total Protein 8.4 g/dL (6.3-8.2)
== END 2024-12-03 21:45 | disposition short-term general hospital (02) ==
PROVIDERS: Emergency Provider Student in an Organized Health Care Education/Training Program; PCP Student in an Organized Health Care Education/Training Program
DX: S42.021A Displaced fracture of shaft of right clavicle, initial encounter for closed fracture (principal); S22.41XA Multiple fractures of ribs, right side, initial encounter for closed fracture; S27.2XXA Traumatic hemopneumothorax, initial encounter; W10.9XXA Fall (on) (from) unspecified stairs and steps, initial encounter
CPT/HCPCS: 36415; 70450; 71045; 71260; 72125; 72129; 72132; 73000; 73030; 74177; 80053; 85025; 85610; 85730; 86850; 86900; 86901; 96374; 96376; 99291; J1171; Q9967